=== PATIENT | female | born 1995 | race Caucasian/White ===

== ENCOUNTER 2019-04-22 23:41 | Outpatient (CLI) | payer OTHER ==
[~2019-04-22] VITALS: Ht 162.6 cm; Wt 77.4 kg
[~2019-04-22 23:41] MED LIST: PREN-93 PO
[2019-04-22 23:49] VITALS: BP 115/63; PULSE 83; RESP 16; Ht 162.6 cm; Wt 77.4 kg
[2019-04-23] MEDS ORDERED: ACETAMINOPHEN 500 MG TAB PO PRN (00:30)
[2019-04-23] MEDS ORDERED: LACTATED RINGER'S 1,000 ML IV ONE (00:30)
[2019-04-23] MEDS ORDERED: ONDANSETRON 4 MG INJ IV PRN (00:30)
[2019-04-23] MEDS ORDERED: LACTATED RINGER'S 1,000 ML IV SCH (01:15)
== END 2019-04-23 03:00 | disposition home or self-care (01) ==
LOC: OBT 23:41 → L-D 23:44 → OBT 04-23 03:00
PROVIDERS: ATTEND Obstetrics & Gynecology
DX: O26.892 Other specified pregnancy related conditions, second trimester (principal); Z3A.24 24 weeks gestation of pregnancy; M54.5 Low back pain
CPT/HCPCS: 36415; 76815; 76817; 80053; 81001; 85025; 96360; 96361; 96375; J2405; J7120; Z7500; Z7610; G0463